=== PATIENT | male | born 1970 | race Asian ===

== ENCOUNTER 2021-07-09 18:56 | Emergency (ER) | payer OTHER ==
[~2021-07-09] VITALS: Ht 193 cm; Wt 141.5 kg
[2021-07-09 19:38] LABS: PLATELET COUNT 347 K/uL (142-355)
[2021-07-09 19:49] LABS: POTASSIUM 3.4 mmol/L (3.6-5.2)
[2021-07-09 20:28] VITALS: BP 137/79; TEMP 99
[2021-07-09] MEDS ORDERED: TYLENOL325 MG PO (22:08)
[2021-07-09] MEDS ORDERED: VITAMIN C 500 M1 TAB PO (22:09)
[2021-07-09] MEDS ORDERED: LIPITOR20 MG PO (22:10)
[2021-07-09] MEDS ORDERED: BREO ELLIPTA 101 INH PO (22:11)
[2021-07-09] MEDS ORDERED: BENZTROPINE0.5 MG PO (22:11)
[2021-07-09] MEDS ORDERED: DESCOVY 200-251 TAB PO (22:12)
[2021-07-09] MEDS ORDERED: DOCU SOFT100 MG PO (22:13)
[2021-07-09] MEDS ORDERED: TAMS0.4C PO (22:14)
[2021-07-09] MEDS ORDERED: FAMO20TA4 PO (22:14)
[2021-07-09] MEDS ORDERED: FLUD0.1T PO (22:15)
[2021-07-09] MEDS ORDERED: GABA300C2 PO (22:16)
[2021-07-09] MEDS ORDERED: HALOPERIDOL0.5 MG PO (22:17)
[2021-07-09] MEDS ORDERED: HALO5TAB10 PO (22:18)
[2021-07-09] MEDS ORDERED: IPRATROPIUM/ INH (22:20)
[2021-07-09] MEDS ORDERED: FURO20TA67 PO (22:21)
[2021-07-09] MEDS ORDERED: MIDODRINE5 MG PO (22:22)
[2021-07-09] MEDS ORDERED: MONT10TA PO (22:22)
[2021-07-09] MEDS ORDERED: RISPERDAL3 MG PO (22:23)
[2021-07-09] MEDS ORDERED: SPIRIVA HANDIH18 MCG INH (22:24)
[2021-07-09] MEDS ORDERED: TRAZ50TA36 PO (22:25)
[2021-07-09] MEDS ORDERED: TIVICAY50 MG PO (22:25)
[2021-07-09] MEDS ORDERED: VENTOLIN HFA INH (22:29)
[2021-07-09] MEDS ORDERED: ZINC50 M1 PO (22:30)
[2021-07-09] MEDS ORDERED: SERT100T PO (22:31)
[2021-07-09] MEDS ORDERED: ZOLOFT25 MG PO (22:32)
== END 2021-07-09 20:28 | disposition other institution (70) ==
LOC: ED 18:56
PROVIDERS: Family Medicine
DX: Z04.6 Encounter for general psychiatric examination, requested by authority (principal); F99 Mental disorder, not otherwise specified
CPT/HCPCS: 36415; 80053; 85027; 87635; 93005; 99283; U0003